=== PATIENT | male | born 1955 | race Caucasian/White ===

== ENCOUNTER 2018-11-14 20:53 | Inpatient (IN) | payer OTHER ==
[~2018-11-14] VITALS: Ht 175.3 cm; Wt 104.5 kg
--- NOTE | ~2018-11-14 | CON ---
[address] [address] CONSULTATION Name: BASHIR COLEY JR Room: [address] IN .R.#: [id number] Admission: 11/15/18 Attend Phys: Karina Sandoval MD Discharge: Date of : 55 Report #: [id number] THIS REPORT FOR: //name// CC: CHUCK physician/PCP Karina Sandoval DICTATED BY: Denisa Easton [facility] DATE OF SERVICE: 11/16/2018 Please note at the time of this dictation, the patient was seen and physically examined by myself. REASON FOR CONSULTATION: Fatty liver and elevated LFTs. HISTORY OF PRESENT ILLNESS: This 63-year-old male presented to the Emergency Room with generalized feelings of feeling weak. He had not been feeling well and had marked exacerbation of his complaints over the last 2 days, which included significant nausea and vomiting, shortness of breath, he was having abdominal pain and bilateral lower extremity pains. His marked shortness of breath was caused with minimal exertion and he felt like he had a bubbling sensation as well. He had some episodes of palpitations he felt like this morning, and once the patient came to the Emergency Room, he was then in respiratory failure and was intubated. He was noted to have bilateral PE, negative for DVT. He also was noted to have an EF of 25%, some pneumonia and pulmonary edema. His troponin was elevated as well and the patient is currently on a heparin drip. ALLERGIES: No known drug allergies. MEDICATIONS: From home [place] and Xanax. PAST MEDICAL HISTORY: Negative. PAST SURGICAL HISTORY: Left eye surgery, umbilical herniorrhaphy, urolithiasis and cholecystectomy. FAMILY HISTORY: Unable to obtain. SOCIAL HISTORY: Denies alcohol use, but does smoke marijuana. No known tobacco use. REVIEW OF SYSTEMS: Twelve-point review of systems is obtained from the chart since unable to obtain from the patient. PHYSICAL EXAMINATION: [place] [address] CONSULTATION Name: JOHNNYSULEIMANBASHIR JR Room: [address] IN [facility]#: [id number] Admission: 11/15/18 Attend Phys: Karina Sandoval MD Discharge: Date of : 55 Report #: [id number] VITAL SIGNS: Temperature 36.9, pulse 96, respirations 14, blood pressure 110/61. HEART: Regular rate and rhythm. LUNGS: Diminished bilaterally. The patient is on a ventilator. ABDOMEN: Soft, positive bowel sounds in all 4 quadrants with no masses or tenderness elicited. LABORATORY DATA: Hemoglobin 13.4, white count is 19.3, platelets are 114. GFR is 21. On admission, his total bilirubin was 1.9, alkaline phosphatase 106, ALT 424 and AST was 362. It began to elevate yesterday and today, total bilirubin is 2.6, alkaline phosphatase is 130, ALT is 4533 and AST is 11,072. PT 27.7, INR 2.3. On admission, his INR was already slightly elevated at 1.6. IMPRESSION: 1. Elevated liver function tests, likely a combination of hepatic steatosis and shock liver. 2. Thrombocytopenia. 3. Leukocytosis. 4. Bilateral pulmonary embolism. 5. Acute respiratory failure. 6. Pneumonia. 7. Congestive heart failure. 8. Fqp-PL-frwpmvahg myocardial infarction. 9. History of substance abuse. PLAN: 1. We will check acute hepatitis panel, RICARDA, ASMA, AMA and PT/INR. 2. Toxicology panel still pending. 3. Further recommendations to be made once the above have been noted. Thank you for allowing us to participate in this patient's care. Please do not hesitate to call with any questions in regard to this consult. By: [id number] Oviedo MD /nt
--- NOTE | ~2018-11-14 | CON ---
[address] [address] CONSULTATION Name: BASHIR COLEY JR Room: [address] IN .R.#: [id number] Admission: 11/15/18 Attend Phys: Karina Sandoval MD Discharge: Date of : 55 Report #: [id number] THIS REPORT FOR: //name// CC: CHUCK physician/PCP Karina Sandoval REASON FOR CONSULTATION: Elevated creatinine. HISTORY OF PRESENT ILLNESS: The patient is a 63-year-old male who presented to the ED with a complaint of generalized ill feelings for about a week and the symptoms exacerbated in the last 2 days with nausea, vomiting, and shortness of breath. On presentation to the Emergency Room, he was noted to be in respiratory distress and got intubated. Also, initial labs showed that he had a creatinine of 1.5. Creatinine has increased to 3 today and hence our consultation for further evaluation. He has had a CTA done on presentation to the Emergency Room on the which showed that he has pulmonary embolism and currently on anticoagulation with heparin. He is also hypotensive in shock, currently on 22 mcg of norepinephrine. He also had echocardiogram done, which showed a poor ejection fraction of 25-30%. Cardiology is following him and has a dobutamine infusion going. He has good urine output and about 875 mL overnight. History is obtained from patient's daughter, brother as well as nursing staff. The patient is unable to give any history because of his intubation/sedation. PAST MEDICAL HISTORY: As mentioned above, history of congestive heart failure, new pulmonary embolism. ALLERGIES: The patient is not allergic to any medications. REVIEW OF SYSTEMS: Unobtainable. SOCIAL HISTORY: Lives alone, but daughter/brother close to him. PHYSICAL EXAMINATION: VITAL SIGNS: He has blood pressure of 100/74, pulse rate of 114, respiratory rate of 25, temperature of 36.6, oxygen saturation is 98% on 40% FiO2 on ventilator. GENERAL: He is intubated and sedated. HEENT: [place] conjunctivae, anicteric sclerae. NECK: No JVD. Trachea midline. LUNGS: Diminished breath sounds bilaterally. No wheezing. CARDIOVASCULAR: Showed tachycardia. No murmur, gallop or rubs. ABDOMEN: Soft. Positive bowel sounds. EXTREMITIES: Showed no edema, no clubbing. LABORATORY DATA: Reviewed. He has a white cell count of 19.3, hemoglobin of 13.4, platelets 119. Chemistry showed a sodium of 138, potassium 3.9, [place] [address] CONSULTATION Name: BASHIR COLEY Room: [address]#: [id number] Admission: 11/15/18 Attend Phys: Karina Sandoval MD Discharge: Date of : 55 Report #: [id number], BUN and creatinine are 60 and 3.0, glucose of 157, AST of 11,000, ALT of 4500. Troponin I of 1.35, alkaline phosphatase 130, albumin 2.6. Urine studies showed 2+ proteinuria, 2+ blood, positive bilirubin. Urine tox positive for benzos and marijuana. Otherwise, all other tests are negative. IMPRESSION: 1. Acute kidney injury, likely secondary to acute tubular necrosis with his hypotension/shock. No previous baseline available, but family did not aware of any previous renal disease. 2. Hypotension/shock. 3. Acute respiratory failure. 4. Transaminitis, likely shock liver. 5. Leukocytosis. 6. Pulmonary embolism. 7. Non-ST elevation myocardial infarction. 8. Thrombocytopenia. 9. Proteinuria and hematuria. PLAN: We will quantify proteinuria. Obtain renal ultrasound. Avoid further nephrotoxins. Maintain mean arterial pressure of 65 or more. The patient has good urine output and oxygenating well at 40% FiO2. No indication for renal replacement therapy at present. We will continue to monitor. Discussed with daughter, discussed with nursing staff, GI as well as a brother. Once again, thank you for the consult. By: [id number] Adkins MD /deya
[2018-11-14 20:58] VITALS: BP 125/86
[2018-11-14] MEDS ORDERED: XANAX 0.5 MG0.5 MG (21:05)
[2018-11-14] MEDS ORDERED: NORCO 5-325 TA1 EAC1 (21:06)
[2018-11-14 21:35] LABS: ABSOLUTE BASOPHILS 0.1 thou/uL (0.0-0.2); ABSOLUTE MONOCYTES 1.5 thou/uL (0.0-1.2); ABSOLUTE NEUTROPHILS 8.5 thou/uL (1.6-8.1); BASOPHILS 0.7 %; EOSINOPHILS 0.2 %; HEMATOCRIT 45.6 % (42.0-52.0); HEMOGLOBIN 14.5 gm/dL (14.0-18.0); LYMPHOCYTES 16.4 %; MCH 28.7 pg (26.0-34.0); MCHC 31.9 g/dL (28.0-37.0); MCV 89.9 fL (80.0-100.0); MONOCYTES 12.4 %; MPV 9.7 fl. (7.2-11.1); NUCLEATED RBCS 0 /100WBC; PLATELET COUNT* 145 thou/uL (150-400); POLYS 70.3 %; RBC 5.07 mil/uL (4.50-6.00); RDW-CV 18.4 % (10.5-14.5); WBC 12.1 thou/uL (4.0-11.0)
[2018-11-14 21:45] LABS: CALCIUM 8.5 mg/dL (8.5-10.1); CREATININE 1.5 mg/dL (0.6-1.3); POTASSIUM 4.5 mmol/L (3.5-5.1)
[2018-11-14 21:55] LABS: INR 1.6; PROTIME 16.1 Seconds (9.20-11.50)
[2018-11-14 21:59] LABS: TOTAL BILIRUBIN 1.9 mg/dL (<0.1-1.0); TOTAL PROTEIN 5.9 g/dL (6.4-8.2)
[2018-11-14 22:06] LABS: TROPONIN-I LEVEL 0.62 ng/mL (<0.06)
[2018-11-15] VITALS (55 sets, daily range): BP systolic 77–110; BP diastolic 38–74
--- NOTE | 2018-11-15 00:09 | NUR ---
PT BACK FROM CT.
[2018-11-15 01:02] LABS: BE -8.6 mmol/L (-2 to +3); PCO2 31.7 mmHg (35.0-45.0); pH 7.324 (7.340-7.450)
[2018-11-15 01:07] LABS: PO2 > 488.8 mmHg (75.0-100.0)
--- NOTE | 2018-11-15 01:32 | NUR ---
PT AT BEDSIDE AND DR CHIRINOS UPDATED FAMILY ON STATUS AND PLAN OF CARE.
[2018-11-15 02:33] LABS: URINE BLOOD 2+ (Negative); URINE CLARITY CLEAR; URINE COLOR YELLOW; URINE GLUCOSE-RANDOM NEGATIVE (Negative); URINE KETONES NEGATIVE (Negative); URINE LEUKOCYTES-REFLEX NEGATIVE (Negative); URINE NITRITE-REFLEX NEGATIVE (Negative); URINE PROTEIN 2+ (Negative); URINE SPECIFIC GRAVITY >= 1.030 (1.005-1.030)
[2018-11-15 02:34] LABS: URINE BILIRUBIN 2+ (Negative)
[2018-11-15 02:39] LABS: ICTOTEST (BILI CONFIRMATORY) Positive (Negative)
[2018-11-15 02:41] LABS: BACTERIA-REFLEX 1-9 Few /HPF (None Seen); CASTS None Seen /LPF (None Seen); CRYSTALS None Seen /LPF (None Seen); SQUAMOUS 0-3 Few /LPF (0-3); URINE RBC 0-2 Rare /HPF (0-2); URINE WBC-REFLEX 0-5 Rare /HPF (0-5)
[2018-11-15 05:29] LABS: ABSOLUTE MONOCYTES 1.7 thou/uL (0.0-1.2); ABSOLUTE NEUTROPHILS 12.8 thou/uL (1.6-8.1); BASOPHILS 0.3 %; EOSINOPHILS 0.1 %; HEMOGLOBIN 14.8 gm/dL (14.0-18.0); LYMPHOCYTES 6.3 %; MCH 28.6 pg (26.0-34.0); MCHC 31.4 g/dL (28.0-37.0); MCV 91.2 fL (80.0-100.0); MPV 9.3 fl. (7.2-11.1); NUCLEATED RBCS 0 /100WBC; PLATELET COUNT* 101 thou/uL (150-400); POLYS 82.3 %; RBC 5.16 mil/uL (4.50-6.00); RDW-CV 19.1 % (10.5-14.5); WBC 15.5 thou/uL (4.0-11.0)
--- NOTE | 2018-11-15 06:49 | NUR ---
RECIEVED PT FROM ER AT 0330H, ON VENT AND TACHYCARDIA NOTED.PT WAS DUSKY/CYANOTIC IN APPEARANCE.ON VERSED,LEVOPHED,HEPARIN INFUSSION.BP FLUCTUATE FROM SYSTOLIC 130'S TO 70'S.STARTED DOBUTAMIN AND PT BECAME RESTLESS AND FENTANYL STARTED.INFORM EMPLOYMENT TRAINING SPECIALIST ABOUT ELEVATED TROP I AND SAID ITS EXPECTED.HIMS ALSO INFORM ABOUT LEVATED LACTIC WITH NO FURTHER ORDER.PT PU ON BEAR HUGGER.PT CONVERT TO SINUS RHYTHYM BUT STILL HYPOTENSIVE.LEVO AND DOBU TITRATE UNTILL BP IS WITHIN NORMAL.CONTINUE MONITORING AND TOWARDS GOALS.CARDIOLOGY ORDER 500ML BOLUS AND GIVEN WHEN CALLED REGARDING TROP I AND I INFORM HIM ABOUT PTS VITAL SIGNS AND INFUSSIONS.
[2018-11-15 08:07] LABS: ALBUMIN 2.9 g/dL (3.4-5.0); ALKALINE PHOSPHATASE 124 U/L (46-116); CHOLESTEROL 126 mg/dL (<200); HDL CHOLESTEROL 18 mg/dL (>40); LDL CHOLESTEROL 91 mg/dL (<100); SGOT 1988 U/L (15-37); SGPT 1492 U/L (30-65); TOTAL BILIRUBIN 3.3 mg/dL (<0.1-1.0); TOTAL PROTEIN 5.3 g/dL (6.4-8.2); TRIGLYCERIDE 87 mg/dL (<150); VLDL 17 mg/dL (<40)
[2018-11-15 08:12] LABS: SERUM ASSESSMENT Clear
[2018-11-15 09:53] LABS: BE -9.6 mmol/L (-2 to +3); PCO2 38.7 mmHg (35.0-45.0); PO2 114.8 mmHg (75.0-100.0)
[2018-11-15 09:54] LABS: pH 7.256 (7.340-7.450)
--- NOTE | 2018-11-15 10:20 | NUR ---
0730 ASSUMED CARE OF PATIENT. PLEASE SEE DOCUMENTED ASSESSMENT. PATIENT IS HYPOTENSIVE. DR THOMAS HERE AND DISCUSSED PLAN OF CARE. ORDERS NOTED
--- NOTE | 2018-11-15 11:29 | EKG ---
[place] [address] ELECTROCARDIOGRAM REPORT Name: BASHIR COLEY JR Room: [address] ADM IN M.R.#: [id number] Admission: 11/15/18 Attend Phys: Karina Sandoval MD Discharge: Date of : 55 Report #: [id number] THIS REPORT FOR: //name// [facility] ED Test Date: 2018-11-14 Test Time: 21:15:25 Pat Name: BASHIR COLEY Department: Room: [facility] Gender: M Diplomatic Interpreter/Translator: GLORIA : 1955 Requested By: Comfort Fong Order Number: [id number] MD: Marques Marc Measurements Intervals Ord Rate: 146 P: KS: QRS: -50 QRSD: 132 T: 144 QT: 318 QTc: 496 Interpretive Statements Atrial flutter with 2:1 AV block 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
--- NOTE | 2018-11-15 11:35 | EKG ---
[place] [address] ELECTROCARDIOGRAM REPORT Name: BASHIR COLEY JR Room: [address] ADM IN M.R.#: [id number] Admission: 11/15/18 Attend Phys: Karina Sandoval MD Discharge: Date of : 55 Report #: [id number] THIS REPORT FOR: //name// [facility] ED Test Date: 2018-11-14 Test Time: 22:20:47 Pat Name: BASHIR COLEY Department: Room: [address] Gender: M Certified Surgical Assistant: [facility] : 1955 Requested By: Comfort Fong Order Number: [id number] Reading MD: Marques Marc Measurements Intervals [place] Rate: 143 P: MS: QRS: -45 QRSD: 131 T: 115 QT: 352 QTc: 543 Interpretive Statements svt Nonspecific IVCD with LAD LVH with secondary repolarization abnormality No previous ECG available for comparison Electronically Signed On 11-15-2018 11:34:58 CDT by Marques Marc [email or web address] <ELECTRONICALLY SIGNED> By: Marques Marc MD, [facility] 11/15/18 1134 19 19 Marques Marc MD, FAC /EPI
--- NOTE | 2018-11-15 11:35 | EKG ---
[place] [address] ELECTROCARDIOGRAM REPORT Name: BASHIR COLEY JR Room: [address] ADM IN M.R.#: [id number] Admission: 11/15/18 Attend Phys: Karina Sandoval MD Discharge: Date of : 55 Report #: [id number] THIS REPORT FOR: //name// [facility] ED Test Date: 2018-11-15 Test Time: 00:40:20 Pat Name: BASHIR COLEY Department: Room: [address] Gender: M Prefitter: GLORIA : 1955 Requested By: Comfort Fong Order Number: [id number] Reading MD: Marques Marc Measurements Intervals [place] Rate: 129 P: 0 ND: QRS: -55 QRSD: 135 T: 157 QT: 357 QTc: 524 Interpretive Statements Sinus tachycardia RBBB and LAFB LVH with secondary repolarization abnormality Anterior Q waves, possibly due to LVH Baseline wander in lead(s) V6 No previous ECG available for comparison Electronically Signed On 11-15-2018 11:35:37 CDT by Marques Marc [email or web address] <ELECTRONICALLY SIGNED> By: Marques Marc MD, [facility] 11/15/18 1135 0040 0040 Marques Marc MD, [facility] /EPI
--- NOTE | 2018-11-15 14:34 | 2DMMODE ---
[place] [address] 2 D/M-MODE ECHOCARDIOGRAM Name: BASHIR COLEY JR Room: [address] IN [facility]#: [id number] Admission: 11/15/18 Attend Phys: Karina Sandoval, Discharge: Date of : 55 Date of Service: 11/15/18 1433 Report #: [id number] THIS REPORT FOR: //name// APPROVED REPORT Study performed: 11/15/2018 09:45:19 EXAM: Comprehensive 2D, Doppler, and color-flow Echocardiogram Patient Location: In-Patient Room #: [facility] Status: routine BSA: 2.13 HR: 107 bpm BP: 91/54 mmHg Rhythm: NSR Other Information Study Quality: Good Indications Arrhythmia 2D Dimensions IVSd: 12.82 (7-11mm) LVOT Diam: 20.67 (18-24mm) LVDd: 65.75 mm PWd: 11.43 (7-11mm) Ascending Ao: 35.20 (22-36mm) LVDs: 56.08 (25-40mm) Aortic Root: 28.44 mm Volumes Left Atrial Volume (Systole) LA ESV Index: 51.40 mL/m2 Aortic Valve AoV Peak Cliff.: 4.14 m/s AO Peak Gr.: 68.47 mmHg LVOT Max P.01 mmHg AO Mean Gr.: 43.06 mmHg LVOT Mean P.57 mmHg LVOT Max V: 0.87 m/s AO V2 VTI: 74.61 cm LVOT Mean V: 0.58 m/s CIARA (VTI): 0.74 cm2 LVOT V1 VTI: 16.50 cm AI Hardy: 5.11 m/s2 AI PHT: 169.74 ms Mitral Valve E/A Ratio: 1.04 [place] [address] 2 D/M-MODE ECHOCARDIOGRAM Name: BASHIR COLEY JR Room: [address] IN ..#: [id number] Admission: 11/15/18 Attend Phys: Karina Sandoval, Discharge: Date of : 55 Date of Service: 11/15/18 1433 Report #: [id number] MV Decel. Time: 81.44 ms MV E Max Cliff.: 0.88 m/s MV PHT: 23.62 ms MVA (PHT): 9.31 cm2 TDI E/Lateral E': 8.00 Lateral E' Cliff.: 0.11 m/s Pulmonary Valve PV Peak Cliff.: 0.80 m/s PV Peak Gr.: 2.56 mmHg Tricuspid Valve RAP Estimate: 5.00 mmHg TR Peak Gr.: 41.65 mmHg RVSP: 46.00 mmHg PA Pressure: 46.00 mmHg Left Ventricle Left ventricle is moderately dilated. There is severe global hypokinesis of the left ventricle. Moderate concentric left ventricular hypertrophy. Left ventricular systolic function is severely decreased. LVEF is 25%. The left ventricular diastolic function is normal. Right Ventricle The right ventricle is normal size. The right ventricular systolic function is normal. Atria Left atrium is severely dilated. The right atrium size is normal. Aortic Valve Aortic valve leaflets are sclerotic with decreased opening. moderate aortic regurgitation. Severe aortic stenosis.Mean gradient 43mmHg Mitral Valve There is mitral annular calcification. Trace mitral regurgitation. No evidence of mitral valve stenosis. Tricuspid Valve The tricuspid valve is normal in structure. Mild tricuspid regurgitation. Moderate pulmonary hypertension[place] [address] 2 D/M-MODE ECHOCARDIOGRAM Name: BASHIR COLEY JR Room: [address]#: [id number] Admission: 11/15/18 Attend Phys: Karina Sandoval, Discharge: Date of : 55 Date of Service: 11/15/18 1433 Report #: [id number] The pulmonary valve is normal in structure. There is no pulmonic valvular regurgitation. Great Vessels The aortic root is normal in size. IVC is normal in size and collapses >50% with inspiration. Pericardium There is no pericardial effusion. <Conclusion> LVEF is 25%. There is severe global hypokinesis of the left ventricle. Moderate concentric left ventricular hypertrophy. Left atrium is severely dilated. Severe aortic stenosis.Mean gradient 43mmHg moderate aortic regurgitation. No evidence of mitral valve stenosis. Trace mitral regurgitation. Mild tricuspid regurgitation. Moderate pulmonary hypertension. <ELECTRONICALLY SIGNED> By: Marques Marc MD, [facility]ACC 11/15/18 1433 1433 1433 Marques Marc MD, FACC /INF
--- NOTE | 2018-11-15 18:15 | NUR ---
PATIENT HAS MADE SOME PROGRESS TOWARDS GOALS. TITRATED UP ON LEVOPHED AND DOWN ON DOBUTAMINE. ECHO DONE AND NOTED. CARDIOLOGY TALKED TO FAMILY. REMAINS SEDATED ON VENT BUT CAN RESPOND TO COMMANDS. HEPARIN PE PROTOCOL IN PLACE. OF PLACED TO DECOMPRESS STOMACH. AFEBRILE. MINIMAL RESPONSE TO LASIX.CVP MONITORED. STARTED ON SSI. MULTIPLE FAMILY MEMBERS HERE TODAY WELL SIGNIFICANT OTHER
--- NOTE | 2018-11-15 18:43 | NUR ---
OF NOTE,PATIENT'S SCLERA ARE NOW SLIGHTLY ICTERIC.
[2018-11-16] VITALS (69 sets, daily range): BP systolic 89–115; BP diastolic 48–69
[2018-11-16 01:48] LABS: INR 2.3; PROTIME 23.7 Seconds (9.20-11.50)
[2018-11-16 05:20] LABS: HEMATOCRIT 41.8 % (42.0-52.0); HEMOGLOBIN 13.4 gm/dL (14.0-18.0); MCH 29.1 pg (26.0-34.0); MCHC 32.2 g/dL (28.0-37.0); MCV 90.4 fL (80.0-100.0); MPV 9.6 fl. (7.2-11.1); RBC 4.62 mil/uL (4.50-6.00); RDW-CV 18.6 % (10.5-14.5); WBC 19.3 thou/uL (4.0-11.0)
[2018-11-16 05:38] LABS: ALBUMIN 2.6 g/dL (3.4-5.0); CALCIUM 7.2 mg/dL (8.5-10.1); POTASSIUM 4.9 mmol/L (3.5-5.1); TOTAL BILIRUBIN 2.6 mg/dL (<0.1-1.0)
--- NOTE | 2018-11-16 06:38 | NUR ---
ASSUMED CARE AT 1900H.ON VENT AND SEDATED.STILL ON HEPARIN INFUSION.DOBAMINE AT DOBUTAMIN DECREASE MUCH POSSIBLE.NO BLEEDING AND RESPIRATORY DISTRESS NOTED.CONTINUE MONITORING AND TOWARDS GOAL.
--- NOTE | 2018-11-16 09:03 | NUR ---
0730 ASSUMED CARE OF PATIENT. SEE DOCUMENTED ASSESSMENT. PATIENT REMAINS ON VENT AND PRESSORS.PLAN IS FOR SEDATION VACATION AND TO MONITOR BLOOD PRESSURES AND LABS,OUTPUT.
[2018-11-16 09:39] LABS: BE -6.5 mmol/L (-2 to +3)
--- NOTE | 2018-11-16 09:49 | CON ---
[address] [address] CONSULTATION Name: BASHIR COLEY JR Room: [address] IN M.R.#: [id number] Admission: 11/15/18 Attend Phys: Karina Sandoval MD Discharge: Date of : 55 Report #: [id number] THIS REPORT FOR: //name// CC: CHUCK physician/PCP Karina Sandoval REASON FOR CONSULTATION: Respiratory failure. HISTORY OF PRESENT ILLNESS: Please note the patient was intubated, sedated during my visit, did not participate in the history, did not have family at the bedside; however, reviewing medical records and discussed with the nursing staff, a 63-year-old male patient. Apparently, he had no chronic medical history prior to current hospitalization, presented to the ER with increasing shortness of breath. Apparently per the record, he had been dealing with shortness of breath for a few months. He reported to the staff that he had pain and fullness in his abdomen, although he denied fever or chills, the pain was not radiating. He was apparently given some IV fluids. He developed respiratory distress and metabolic acidosis. He was tried on noninvasive ventilation, but could not tolerate. He ended up being intubated. Part of the workup included CT of the chest that showed small pulmonary embolus. He also required vasopressors. This morning, he was on 25 mcg of Levophed. During my visit, he was sedated, he was on fentanyl and Versed, he was on fentanyl 30 mcg per hour and Versed 3 mg per hour. He was on 50% FiO2. He looks comfortable. He was on assist control ventilation. Normal secretion was reported per the ET tube and he had some metabolic acidosis. PAST MEDICAL HISTORY: As per the record, no chronic medical problem prior to current hospitalization. PAST SURGICAL HISTORY: Per the record eye surgery in the 60s, herniorrhaphy in the early 1999s, kidney stone disease and cholecystectomy. SOCIAL HISTORY: Apparently, he does not smoke tobacco per the record, does not drink alcohol excessively, but there is reported history he uses marijuana. FAMILY HISTORY: Not obtainable. He is on the vent. REVIEW OF SYSTEMS: Unobtainable. He is intubated, on sedation. PHYSICAL EXAMINATION: VITAL SIGNS: On examination, he is on 25 mcg of Levophed with a blood pressure of 100/74, O2 sat 98% was on 50% FiO2, and temperature 36.6. GENERAL: Looks his stated age, overweight, intubated, on sedation, non-arousable. HEENT: Head normocephalic, atraumatic. Pupils sluggish reaction to light equally bilaterally. External ear looks normal. Oral cavity, [place] [address] CONSULTATION Name: BASHIR COLEY JR Room: [address] IN [facility]#: [id number] Admission: 11/15/18 Attend Phys: Karina Sandoval MD Discharge: Date of : 55 Report #: [id number] membrane with ET tube in place. NECK: Nontender. Trachea is central. CHEST: Diminished air movement bilaterally, prolonged expiratory phase. I did not appreciate added sound. No tenderness, but he was on sedation. ABDOMEN: Obese, lax, nontender, sluggish bowel sounds. No masses or rebound. No rigidity. EXTREMITIES: Lower extremity, trace edema, no calf tenderness. NEUROLOGIC: He is sedated. LYMPHATICS: No palpable lymph node. SKIN: Normal for age and race. NEUROLOGIC: Mood and affect could not be evaluated. LABORATORY DATA: His white blood count is 12.1 with hemoglobin of 14.5 and platelets of 145. He has slight shift on the differential on his white blood count today 15.5. His INR is 1.6. D-dimer was elevated. His sodium 138, potassium 4.5, BUN of 38 and creatinine of 1.8. His troponin is slightly elevated, BNP 15,294. His venous Doppler ultrasound did not show evidence of DVT. However, CT of the chest demonstrated right lower lobe PE subsegmental and signs of congestive heart failure with right-sided pleural effusion and area of infiltrate on the right side. His chest x-ray was suggestive of signs of fluid overload. Also, the ABGs were reviewed. Last ABG 7.256/38/114 and this was done on assist control ventilation, rate of 14, and 50% FiO2. IMPRESSION: 1. Acute respiratory failure. 2. Pulmonary infiltrate. 3. Pneumonia. 4. Pleural effusion. 5. Congestive heart failure. 6. Pulmonary edema. 7. Respiratory distress. 8. Acute pulmonary embolus. 9. Metabolic acidosis. 10. Shock. The patient with respiratory failure, multifactorial. He has a small PE. He has pleural effusion, he has pulmonary edema and signs of congestive heart failure with infiltrates in the right side and elevated white blood cell count, suspect pneumonia. I am going to start him on Zosyn and check sputum culture and sensitivity. He has metabolic acidosis and he is in shock. We need to start working on weaning his pressors down. He is also in acute renal failure. We need to monitor his kidney function. He will be on scheduled nebulization treatment. I am going to give him 3 doses of steroids, given the severe shock he is on. [address] [place] [address] CONSULTATION Name: BASHIR COLEY Room: [address] IN [facility]#: [id number] Admission: 11/15/18 Attend Phys: Karina Sandoval MD Discharge: Date of : 55 Report #: [id number] We will continue the current aggressive care. He will benefit from an echocardiogram. Of note, he is also on heparin for his acute pulmonary embolus. Discussed with RT and RN. At this point, I would keep the current sedation plan. Once his blood pressure is more stable, we can switch his Versed to another form of sedation. Thank you for the consult. Critical care time 39 minutes. <ELECTRONICALLY SIGNED> By: Jorge Lincoln MD 11/16/18 0949 1017 [id number] Lincoln MD /nt
[2018-11-16 09:53] LABS: pH 7.228 (7.340-7.450)
[2018-11-16 09:54] LABS: PCO2 52.9 mmHg (35.0-45.0); PO2 127.7 mmHg (75.0-100.0)
[2018-11-16 10:15] LABS: AMP/METHAMP Negative (Negative); BARBITURATES Negative (Negative); BENZODIAZEPINES POSITIVE (Negative); COCAINE Negative (Negative); METHADONE Negative (Negative); OPIATES Negative (Negative); PCP Negative (Negative); THC POSITIVE (Negative)
--- NOTE | 2018-11-16 10:39 | NUR ---
[address] DO AND ORDERS NOTED. SEEN BY GI AND NEPHROLOGY. DAUGHTER NADINE HAS SPOKEN WITH PHYSICIANS AND UPDATED ON PLAN OF CARE
[2018-11-16 11:09] LABS: GLYCOHEMOGLOBIN (HGB A1C) 6.1 % (4.8-5.6)
--- NOTE | 2018-11-16 14:18 | NUR ---
STAFF RN INFORMED THAT THE PATIENT NEEDS TO BE TRANSFERED TO [facility]. D/C DISTANCE EDUCATION COORDINATOR SPOKE TO SWATHI WITH THE [facility] TRANSFER TEAM TO INFORM OF THE NEED TO TRANSFER THE PATIENT. REQUESTING PHYSICIAN: DR DOUGLAS. REASON FOR TRANSFER: SEVERE AORTIC STENOSIS/TAVR. BED: ICU. D/C DISTANCE EDUCATION COORDINATOR INFORMED JERRICA ECHEVARRIA OF ALL OF THE ABOVE INFO, AND FAXED THE PATIENT'S CLINICAL INFO, PROGRESS NOTES, RADIOLOGY REPORTS, AND LABS. D/C DISTANCE EDUCATION COORDINATOR ALSO PROVIDED SWATHI THE ICU UNITS PHONE NUMBER IN-CASE MORE CLINCAL INFO WAS NEEDED. D/C DISTANCE EDUCATION COORDINATOR AWAITING RETURN CALL FROM [facility] TRANSFER TEAM TO DISCUSS ABILITY TO ACCEPT THE PATIENT. CM WILL REMAIN AVAILABLE TO ASSIST AND FOLLOW NEEDED. [facility] TRANSFER TEAM PHONE: [phone] FAX: [phone]
--- NOTE | 2018-11-16 15:03 | NUR ---
DR MOTT AND DR DOUGLAS HAVE AGREED TO TRANSFER PATIENT TO FACILITY THAT DOES HEART SURGERY. CASEMANAGEMENT INVOLVED AND FAMILY IS AWARE OF PLANS
--- NOTE | 2018-11-16 16:00 | NUR ---
SPOKE WITH SISTER, LAURA, AT THE BEDSIDE. LAURA CRYING, VISIBLY UPSET, STATES 'I JUST LOVE MY BROTHER SO MUCH, I WANT TO MAKE SURE EVERYTHING IS BEING DONE FOR HIM.' SISTER AWARE OF PLANS TO TRANSFER TO [facility], DISCUSSED WITH SISTER AND OTHER FAMILY MEMBERS AT BEDSIDE WE HAD CONTACTED [facility] AND WERE WAITING ON CONFIRMATION IF THEY COULD ACCEPT PT, THE SCIENTIFIC DIRECTOR AND HOSPITALIST FEEL PT IS STABLE ENOUGH FOR THE TRANFSER. PROVIDED SUPPORT. NURSING UPDATED ON MY CONVERSATION WITH FAMILY.
--- NOTE | 2018-11-16 18:43 | NUR ---
1835 6 SECOND BURST OF SVT RESOLVED SPONTANEOUSLY. SEE RHYTHM STRIP
--- NOTE | 2018-11-16 23:22 | NUR ---
ASSUMED CARE AT 1900H.ON VENT AND SEDATION OF VERSED AND FENTANYL.ON DOBUTAMINE AND LEVOPHED.AT 2030H PT BECAME TACHYCARDIC WITH THE PRESENCE OF THE HIS DAUGTHERS.HR INCREASED TO 160-170BPM AND IRREGULAR.INFORMED SYSTEMS TEST ANALYST AND ORDERED AMIODARONE DRIP.INFORMED DAUGHTERS ABOUT THE TREAMENT AND SEEMS ONE DAUGHTER WAS ANXIOUS.EDUACATE DAUGHTERS ABOUT THE TREATMENT.
[2018-11-17] VITALS (35 sets, daily range): BP systolic 88–108; BP diastolic 50–71
[2018-11-17 04:46] LABS: ABSOLUTE BASOPHILS 0.1 thou/uL (0.0-0.2); ABSOLUTE LYMPHOCYTES 1.9 thou/uL (0.8-5.3); ABSOLUTE MONOCYTES 1.1 thou/uL (0.0-1.2); ABSOLUTE NEUTROPHILS 15.2 thou/uL (1.6-8.1); BASOPHILS 0.5 %; HEMATOCRIT 42.6 % (42.0-52.0); HEMOGLOBIN 13.5 gm/dL (14.0-18.0); LYMPHOCYTES 10.6 %; MCH 28.6 pg (26.0-34.0); MCHC 31.7 g/dL (28.0-37.0); MCV 90.2 fL (80.0-100.0); MONOCYTES 6.3 %; MPV 9.6 fl. (7.2-11.1); NUCLEATED RBCS 1 /100WBC; PLATELET COUNT* 130 thou/uL (150-400); POLYS 82.6 %; RBC 4.73 mil/uL (4.50-6.00); RDW-CV 19.1 % (10.5-14.5); WBC 18.4 thou/uL (4.0-11.0)
[2018-11-17 05:24] LABS: ALBUMIN 2.5 g/dL (3.4-5.0); CALCIUM 7.1 mg/dL (8.5-10.1); CREATININE 2.2 mg/dL (0.6-1.3); POTASSIUM 4.7 mmol/L (3.5-5.1); TOTAL BILIRUBIN 2.7 mg/dL (<0.1-1.0); TOTAL PROTEIN 4.8 g/dL (6.4-8.2)
--- NOTE | 2018-11-17 05:39 | NUR ---
PT HR NOW IS 120'S-130'S AND STILL IRREGULAR.GRADUALLY DECREASE BOBUTAMIN UNTIL OFF AT 0400H, MAP MAINTAINING ABOVE 60.NO BLEEDING NOTED, VENT WELL TOLERATED.MONITOR PT AND TOWARDS GOALS.
[2018-11-17 05:43] LABS: pH 7.343 (7.340-7.450)
[2018-11-17 05:45] LABS: PO2 142.5 mmHg (75.0-100.0)
[2018-11-17 06:20] LABS: INR 1.9; PROTIME 19.4 Seconds (9.20-11.50)
--- NOTE | 2018-11-17 08:00 | NUR ---
DR. DOUGLAS MET WITH FAMILY AT BEDSIDE TO DISCUSS PLAN OF CARE AND EXPLAIN IN DETAIL WHAT WAS BEING DONE FOR PT. FAMILY ASKING ABOUT CHECKING WITH [facility]. SISTER, LAURA, KEEPS REPEATING THAT PATIENT NEEDS TO BE AT A HIGHER LEVEL OF CARE. DR. DOUGLAS OKAY WITH CONTACTING [facility]. [facility] ALSO CALLED TO CHECK ON PT FROM THE CALLS MADE YESTERDAY TO TRANSFER TO [facility].
--- NOTE | 2018-11-17 10:52 | EKG ---
[place] [address] ELECTROCARDIOGRAM REPORT Name: BASHIR COLEY JR Room: [address] ADM IN M.R.#: [id number] Admission: 11/15/18 Attend Phys: Karina Sandoval MD Discharge: Date of : 55 Report #: [id number] THIS REPORT FOR: //name// [facility] Test Date: 2018-11-16 Test Time: 20:43:23 Pat Name: BASHIR TURNERSULEIMAN Department: Room: [address] Gender: M Vial Gauger: [id number] : 1955 Requested By: Marques Marc Order Number: [id number] Reading MD: Shiva Samaniego Measurements Intervals Rowe Rate: 166 P: CO: QRS: -50 QRSD: 131 T: 120 QT: 312 QTc: 519 Interpretive Statements Wide-QRS tachycardia Left bundle branch block Compared to ECG 11/15/2018 00:40:20 rate increased Electronically Signed On 11-17-2018 10:52:27 CDT by Shiva Samaniego [email or web address] <ELECTRONICALLY SIGNED> By: Shiva Samaniego MD, [facility] 11/17/18 1052 42 42 Shiva Samaniego MD, FAC /EPI
--- NOTE | 2018-11-17 11:30 | NUR ---
CALLED EARLIER TO [facility]SF[facility] ([phone]), SPOKE WITH YEIMI. FAXED TO HIM H&P, CONSULTS, PROGRESS NOTES (FAX [phone]). ALSO FAXED TO [facility] UPDATED PROGRESS NOTED FROM TODAY ([phone]). SPOKE WITH EXTENDED FAMILY IN THE WAITING ROOM TO UPDATE THEM.
--- NOTE | 2018-11-17 11:48 | CON ---
[address] [address] CONSULTATION Name: BASHIR COLEY JR Room: [address] IN M.R.#: [id number] Admission: 11/15/18 Attend Phys: Karina Sandoval MD Discharge: Date of : 55 Report #: [id number] THIS REPORT FOR: //name// CC: [facility] physician/PCP Karina Sandoval DATE OF SERVICE: 11/16/2018 ATTENDING PHYSICIAN: Karina Mina MD REASON FOR EVALUATION: Multiorgan failure, leukocytosis. HISTORY OF PRESENT ILLNESS: Chart reviewed, patient examined. This is a 63-year-old without significant medical history who presented with several week history of ill feeling, this has progressed, had nausea, emesis per ER record, generalized weakness, over the course of the last couple of days, this significantly intensified and did experience some dyspnea as well as abdominal pain and bilateral lower extremity pains, was found to have laboratory abnormalities including lactic acidemia, markedly elevated liver function tests suggestive of hepatitis. Echo showed profound cardiomyopathy with an EF of 25%, severe global hypokinesis, severe aortic stenosis, moderate aortic regurgitation, in addition was found to have a pulmonary embolus as well. Had received some corticosteroids. White count initially was 12. It has increased to 19.3. He was empirically started on systemic antibiotics with piperacillin and tazobactam and the family members present able to give additional history. At this point, he is sedated, maintained on mechanical ventilator support, he is on pressor support with Levophed and he has dobutamine as well. He has been afebrile. Blood cultures are sterile thus far. ALLERGIES: None known. MEDICATIONS: Include pantoprazole, insulin, Zosyn q.8 dosing adjusted for his renal failure, ipratropium and albuterol inhaler, fentanyl, norepinephrine and dobutamine. PAST MEDICAL HISTORY: Distant left eye surgery, herniorrhaphy, ureterolithiasis and cholecystectomy. SOCIAL HISTORY: Nonsmoker. Does use marijuana time to time. REVIEW OF SYSTEMS: Not obtainable. PHYSICAL EXAMINATION: GENERAL: He was maintained supine, head elevated, he is intubated, endotracheal tube. He is only minimally responsive, does arouse, opens eyes briefly with stimuli. He appears [place] [address] CONSULTATION Name: BASHIR COLEY JR Room: [address]#: [id number] Admission: 11/15/18 Attend Phys: Karina Sandoval MD Discharge: Date of : 55 Report #: [id number] VITAL SIGNS: Temperature 98.3, pulse 101, respirations 18, blood pressure 105/63 and saturation 98%. SKIN: Warm, dry, no rashes. HEENT: Normocephalic. Extraocular muscles are intact. NECK: Supple. LUNGS: Diminished breath sounds. HEART: Borderline tachycardic, regular. I do not appreciate murmur, although he is noted to have history of severe aortic stenosis, moderate atrial regurgitation. ABDOMEN: Soft. There are no overt peritoneal signs. GENITOURINARY: Deferred. RECTAL: Deferred. LABORATORY AND DIAGNOSTIC DATA: Renal ultrasound was unremarkable. Hemoglobin A1c was 6.1. Urine drug screen was positive for benzodiazepines and marijuana. ABGs: PH 7.228, pCO2 of 52.9, pO2 is 127.7 and FiO2 of 40%. Troponin elevated serially, most recently 1.35. Chest x-ray: Bilateral opacities, greater on the right, some interstitial infiltrates. Initial CBC: White count 12.1, repeat today 19.3, H and H 13.4 and 41.8, platelets of 119. Blood cultures sterile thus far from admission. Free T4 is 1.2. Venous Doppler of lower extremities were negative for DVT. Most recent ABG: PH 7.228, pCO2 of 52.9, pO2 of 127.7. Echo as described above. Electrolytes: Sodium 138, potassium 4.9, chloride 102, bicarbonate is 22, anion gap of 14, BUN and creatinine 60 and 3.0, except for 1.5. AST of 7072 and ALT of 4533. The former is up from 362 on admission, latter was 424. ASSESSMENT AND PLAN: Septic shock, complicated by multiorgan failure. Certainly appears to have been hypotensive, does have severe aortic stenosis with cardiomyopathy with inciting event was that triggered the decompensation is not clear. Blood cultures are sterile thus far. It is reasonable to continue empiric antimicrobial therapy. We will give a single dose of vancomycin as well. He remains critically ill at this point. Wean off support as allowed. At this point, I do not suspect any unusual organisms and did discuss in detail with his daughter. <ELECTRONICALLY SIGNED> By: Jayy Dawn MD 11/17/18 1148 1313 [id number] Dawn MD /nt
--- NOTE | 2018-11-17 15:14 | NUR ---
PATIENT REMAINS INTUBATED AND SEDATED. PT TOLERATED SEDATION VACATION OPENED EYES ON COMMAND.
--- NOTE | 2018-11-17 15:35 | NUR ---
[facility] GTT STARTED ORDERED. AWAITING TRANSFER IF POSSIBLE.
--- NOTE | 2018-11-17 16:00 | NUR ---
CALLED [facility]'S TRANSFER TEAM AND SPOKE WITH REDDY EARLIER. SHE TOOK THE INFORMATION FOR POSSIBLE TRANSFER. SHE RETURNED CALL LATER AND SAID THEIR ICU AT THE [facility] IS FULL AND THEY HAVE A WAITING LIST FROM PATIENTS WITHIN THEIR SYSTEM NEEDING TO TRANSFER TO THE [place] SO THEY ARE DECLINING PATIENT. SHE SUGGESTED TRYING [facility]. CALLED [facility] TRANSFER [phone] AND SPOKE WITH DURGA. SHE TOOK THE INFORMATION ON THE PATIENT AND SAID SHE WOULD CHECK INTO WHETHER THEY COULD ACCEPT OR NOT, SHE SAID THEY ARE VERY TIGHT ON ICU BEDS SO NOT SURE THEY CAN ACCEPT ANY TRANSFER. DR. DOUGLAS NOTIFIED. UPDATED FAMILY (BARRONR NADINE) AND NURSE.
[2018-11-17 16:06] LABS: HEPATITIS B SURFACE AG Negative (Negative)
[2018-11-17 16:26] LABS: ALBUMIN 2.7 g/dL (3.4-5.0); CALCIUM 7.7 mg/dL (8.5-10.1); CREATININE 2.3 mg/dL (0.6-1.3); POTASSIUM 5.3 mmol/L (3.5-5.1); TOTAL BILIRUBIN 3.3 mg/dL (<0.1-1.0); TOTAL PROTEIN 5.3 g/dL (6.4-8.2)
--- NOTE | 2018-11-17 17:50 | NUR ---
NOTIFIED BY [facility] TRANSFER NURSE THAT THEY HAVE ACCEPTED PT, SHE WILL CALL THE ICU AND TALK WITH THE NURSE TO GIVE THEM THE PHONE NUMBER TO CALL REPORT, ETC. SPOKE WITH NURSING TO NOTIFY THEM. CHART WAS COPIED YESTERDAY BUT THEY WILL ADD TODAY'S INFORMATION. NURSING WILL NOTIFY FAMILY OF TRANSFER.
--- NOTE | 2018-11-17 19:41 | NUR ---
Patient transfered to [facility]. REPORT CALLED TO MERC[facility] BECERRIL.
[2018-11-18 16:06] LABS: ANA INTERPRETATION Negative (Negative)
--- NOTE | 2018-11-21 14:52 | CON ---
[address] [address] CONSULTATION Name: BASHIR COLEY JR Room: [address]#: [id number] Admission: 11/15/18 Attend Phys: Karina Sandoval MD Discharge: 11/17/18 Date of : 55 Report #: [id number] THIS REPORT FOR: //name// CC: [facility] physician/PCP Karina Sandoval DATE OF SERVICE: 11/15/2018 INPATIENT CONSULTATION NOTE REASON FOR CONSULTATION: Respiratory failure, hypotension, abnormal troponin level. HISTORY OF PRESENT ILLNESS: The patient is a 63-year-old male with critical illness brought into the Emergency Room, respiratory failure. He was intubated and presently hypotensive. He transiently went into a narrow complex regular tachycardia in the 160 beats per range. There is no record of chest pain or pressure. He was evaluated for pulmonary embolus and was found to have bilateral subsegmental PE. His presenting ECG did not show acute ST segment abnormalities. His cardiac troponin level was mildly abnormal. During his resuscitation event, his cardiac troponin level came back at 1.52. Minimal medical record history is available. He apparently does not seek medical care. PAST MEDICAL HISTORY: His past medical history is significant for the following: Prior eye surgery and umbilical hernia repair. SOCIAL HISTORY: He has a history of substance use. FAMILY HISTORY: Noncontributory. HOME MEDICATIONS: His only home medications include hydrocodone and alprazolam. INPATIENT MEDICATIONS: Include the following, he is currently on IV dobutamine, Levophed, piperacillin, hydrocortisone, Norcuron, Versed, famotidine, and aspirin. REVIEW OF SYSTEMS: Not obtainable. PHYSICAL EXAMINATION: VITAL SIGNS: Blood pressure is 90/50 with a pulse of 103 and a sinus rhythm, sinus tachycardia, O2 sat on the ventilator is 95%. GENERAL: This is un[place] [address] CONSULTATION Name: BASHIR COLEY JR Room: [address]#: [id number] Admission: 11/15/18 Attend Phys: Karina Sandoval MD Discharge: 11/17/18 Date of : 55 Report #: [id number] HEENT: ET tube is secured to the patient. NECK: Supple. There is no jugular venous distention. CARDIOVASCULAR: Regular. Positive S3. I cannot hear a murmur. Breath sounds are coarse bilaterally. ABDOMEN: Mildly distended. There is no fluid wave. EXTREMITIES: Warm. There is no peripheral edema. Pulses, radial and dorsalis pedis pulses are faint. Distal extremities are warm. LABORATORY DATA: Electrocardiogram demonstrates on initial presentation, his SVT at a rate of [address] segment depression. Borderline LVH. OTHER LABORATORY DATA: Hemoglobin is 14.8, white blood count was 12.1, and platelet count is 145,000. Sodium 138, potassium is 4.5, chloride is 103, BUN is 38, and creatinine is 1.5. Troponin I is 1.52, AST is 1988, ALT is 1492. BNP is 15,294. Venous Dopplers were negative. Chest x-ray reveals no pneumothorax. There is a hazy opacity of the right lung with cardiomegaly. CTA of the chest demonstrates pulmonary artery emboli within subsegmental pulmonary artery branch of the right lower lobe, technically limited study. IMPRESSION: 1. Acute respiratory failure. Presently, he is intubated on broad spectrum antibiotics and has hemodynamic instability. 2. Hypotension. I will continue with pressor agents utilizing Levophed, mostly. I would try to wean off dobutamine. 3. Abnormal troponin level. This is probably secondary to shock, hypotensive episode and his ECG does not show evidence of an acute coronary syndrome, although he probably has some underlying coronary artery disease. Details of this can be evaluated at a later date. We will arrange for an echocardiogram to assess LV function. I will continue supportive cardiovascular care. 4. Supraventricular tachycardia. This is likely secondary to his respiratory failure as well as pressor requirements. 5. Pulmonary embolus-continue with IV antiocoagulation 6. Acute kidney injury-secondary to hypotension 7. shock liver- as above <ELECTRONICALLY SIGNED> By: Marques Marc MD, FACC 11/21/18 1452 1035 [id number] Marc MD, FACC /nt
== END 2018-11-17 19:25 | disposition short-term general hospital (02) | DRG 871 ==
LOC: M.ERS 20:53 → M.TBA-ER 11-15 01:40 → M.ICU 11-15 01:40
PROVIDERS: Emergency Medicine; Internal Medicine; Nurse Practitioner Adult Health; ADMIT Internal Medicine
PROC: 5A1945Z Respiratory Ventilation, 24-96 Consecutive Hours (ICD-10-PCS; principal; 2018-11-15)
PROC: 0BH17EZ Insertion of Endotracheal Airway into Trachea, Via Natural or Artificial Opening (ICD-10-PCS; principal; 2018-11-15)
PROC: 02HV33Z Insertion of Infusion Device into Superior Vena Cava, Percutaneous Approach (ICD-10-PCS; principal; 2018-11-15)
DX: A41.9 Sepsis, unspecified organism (principal); I26.99 Other pulmonary embolism without acute cor pulmonale; J96.01 Acute respiratory failure with hypoxia; J18.9 Pneumonia, unspecified organism; R65.21 Severe sepsis with septic shock; I21.4 Non-ST elevation (NSTEMI) myocardial infarction; N17.0 Acute kidney failure with tubular necrosis; I50.43 Acute on chronic combined systolic (congestive) and diastolic (congestive) heart failure; K72.00 Acute and subacute hepatic failure without coma; E87.2 Acidosis; I47.1 Supraventricular tachycardia; I42.9 Cardiomyopathy, unspecified; D68.4 Acquired coagulation factor deficiency; I35.0 Nonrheumatic aortic (valve) stenosis; D69.6 Thrombocytopenia, unspecified; I27.20 Pulmonary hypertension, unspecified; F41.1 Generalized anxiety disorder; F12.90 Cannabis use, unspecified, uncomplicated; E66.9 Obesity, unspecified; Z68.34 Body mass index [BMI] 34.0-34.9, adult; Z90.49 Acquired absence of other specified parts of digestive tract; Z87.442 Personal history of urinary calculi; Z79.899 Other long term (current) drug therapy